=== PATIENT | male | born 1985 | race Asian ===

== ENCOUNTER 2023-12-22 17:42 | Emergency (ER) | payer OTHER ==
[2023-12-22 18:02] VITALS: BP 132/93; PULSE 94; RESP 18; TEMP 98.8; BMI 26.2
== END 2023-12-22 21:34 | disposition home or self-care (01) ==
LOC: JER 17:42
DX: T18.2XXA Foreign body in stomach, initial encounter (principal)
CPT/HCPCS: 71046-TC-FY; 74019-TC-FY; 99284-25